=== PATIENT | female | born 1980 | race Hispanic/Latino ===

== ENCOUNTER 2017-05-27 17:53 | Emergency (ER) | payer BC, SELFPAY ==
[2017-05-30 14:14] LABS: Chlamydia by PCR Not Detected (NotDetected); GC by PCR Not Detected (NotDetected)
== END 2017-05-27 18:25 | disposition home or self-care (01) ==
LOC: BURERS 17:53
DX: A59.01 Trichomonal vulvovaginitis (principal); E03.9 Hypothyroidism, unspecified; F32.9 Major depressive disorder, single episode, unspecified; Z79.899 Other long term (current) drug therapy
CPT/HCPCS: 87480; 87491; 87510; 87591; 87660; 99283